=== PATIENT | male | born 1960 | race Caucasian/White ===

== ENCOUNTER 2023-06-13 00:12 | Emergency (ER) | payer MEDICARE, SELFPAY ==
[2023-06-13 00:14] VITALS: BP 138/82; PULSE 95; RESP 16; TEMP 36.8; O2SAT 99; BMI 25.0
--- NOTE | 2023-06-13 00:14 | ED_ITS ---
HPI - Abdominal Pain 2 General: Chief Complaint: Abdominal Pain Stated Complaint: hernia pain Time Seen by Provider: 06/13/23 00:12 Source: patient and EMS Mode of arrival: EMS Limitations: no limitations History of Present Illness: 62-year-old male that is here from [facility] he states that his fianc?e is post come to get him but he is currently homeless he states that he was walking outside tonight was cold knees got a chronic right lower hernia in the inguinal canal and states it was hurting. He states that it is now reduced his pain is much improved he denies any pain currently has had no vomiting or diarrhea Associated Symptoms: Denies chills, diarrhea, fever(s), nausea and vomiting Review of Systems 2 Const: Denies: fever(s), chills, body aches or change in appetite ENMT: Denies: throat pain or dental pain Card: Denies: chest pain Resp: Denies: dyspnea GI: Reports: abdominal pain; Denies: nausea, vomiting or diarrhea Musc: Denies: neck pain or back pain Skin/Breast: Denies: rash Neuro: Denies: headache(s) Physical Exam 2 Const: COMMON NORMALS: no acute distress, patient oriented x3 and healthy appearing HENMT: COMMON NORMALS: normocephalic and atraumatic HEAD & SCALP: n ormocephalic and atraumatic Neck/C-Spine: COMMON NORMALS: full ROM and supple Chest: COMMONS NORMALS: normal inspection of the chest Resp: COMMON NORMALS: normal respiratory effort Cardio: COMMON NORMALS: regular rate, regular rhythm and No murmurs present (Cardio) RATE: regular rate RHYTHM: regular rhythm GI: COMMON NORMALS: Normal to inspection, nondistended, normoactive bowel sounds present, Soft to palpation, non-tender and no masses PALPATION: Yes Soft to palpation OTHER: No palpable hernia noted no tenderness on abdominal exam Extremity: COMMON NORMALS: normal to inspection and full ROM Neuro: COMMON NORMALS: patient oriented x3, moves all extremities and no focal motor deficits Psych: COMMON NORMALS: mental status grossly normal, Normal thought process present and cooperative THOUGHT PROCESS: Normal thought process present Skin: COMMON NORMALS: no rashes or lesions noted and no wounds GENERAL SKIN EXAM: no rashes or lesions noted Course 2 Vital Signs: Vital signs: Vital Signs Temperature 98.3 F 06/13/23 00:14 Pulse Rate 95 06/13/23 00:14 Respiratory Rate 16 06/13/23 00:51 Blood Pressure 125/78 06/13/23 00:51 Pulse Oximetry 97 06/13/23 00:51 Oxygen Delivery Me thod Room Air 06/13/23 00:51 MDM - Abdominal Pain Medical Decision Making Patient presents here with abdominal pain chronic in nature 7 inguinal hernia in the past exam here is benign no hernia palpated he states that it had resolved he had no pain here blood works normal he is stable for discharge follow-up with PCP return if worsening. Medical Records I reviewed the patient's medical records. Lab Data I reviewed the patient's lab results. 06/13/23 00:33 06/13/23 00:33 Labs/Radiology: Laboratory Results WBC 11.87 10^3/uL (3.29-11.43) H 06/13/23 00:33 RBC 3.59 10^6/uL (3.85-5.65) L 06/13/23 00:33 Hgb 11.30 g/dL (11.27-16.99) 06/13/23 00:33 Hct 34.4 % (37-53) L 06/13/23 00:33 MCV 95.8 fl (82-101) 06/13/23 00:33 MCH 31.5 pg (27-33) 06/13/23 00:33 MCHC 32.8 g/dL (30-55) 06/13/23 00:33 RDW 13.9 % (12.1-15.1) 06/13/23 00:33 Plt Count 245 10^3/cmm (157-399) 06/13/23 00:33 MPV 9.0 fL (7.4-10.4) 06/13/23 00:33 Neut % (Auto) 78.3 % 06/13/23 00:33 Lymph % (Auto) 12.0 % 06/13/23 00:33 Bracken % (Auto) 7.5 % 06/13/23 00:33 Eos % (Auto) 1.2 % 06/13/23 00:33 Baso % (Auto) 0.2 % 06/13/23 00:33 Neut # (Auto) 9.31 10^3/uL (1.8-7.7) H 06/13/23 00:33 Lymph # (Auto) 1.4 10^3/uL (0.8-4.8) 06/13/23 00:33 Bracken # (Auto) 0.9 10^3/uL (0.2-0.9) 06/13/23 00:33 Eos # (Auto) 0.1 10^3/uL (0.0-0.8) 06/13/23 00:33 Baso # (Auto) 0.0 10^3/uL (0.0-0.1) 06/13/23 00:33 Nucleated RBC % (auto) 0 % 06/13/23 00:33 Nucleated RBCs # 0.0 /100WBC 06/13/23 00:33 Sodium 139 mmol/L (136-145) 06/13/23 00:33 Potassium 4.4 mmol/L (3.5-5.1) 06/13/23 00:33 Chloride 104 mmol/L (98-107) 06/13/23 00:33 Carbon Dioxide 25 mmol/L (22-29) 06/13/23 00:33 Anion Gap 14.4 (5-19) 06/13/23 00:33 BUN 12 mg/dL (8-23) 06/13/23 00:33 Creatinine 0.9 mg/dL (0.7-1.2) 06/13/23 00:33 Glucose 108 mg/dL (65-115) 06/13/23 00:33 Calculated Osmolality 288 mOsm/kg (285-295) 06/13/23 00:33 Total Bilirubin 0.3 mg/dL (0.15-1.2) 06/13/23 00:33 AST 31 U/L (0-40) 06/13/23 00:33 ALT 35 U/L (0-41) 06/13/23 00:33 Alkaline Phosphatase 81 U/L (40-130) 06/13/23 00:33 Total Protein 6.7 g/dL (6.6-8.7) 06/13/23 00:33 Albumin 3.6 g/dL (3.5-5.2) 06/13/23 00:33 Globulin 3.1 g/dL (1.3-4.6) 06/13/23 00:33 No radiology studies performed this visit Discharge Plan Discharge Patient Disposition: Home Clinical Impression: Abdominal pain Condition: Stable Discharge Orders: Discharge ED (Routine); Ordered 06/13/23 Ordered By: Mela Lima Discharge Diet: Advance as tolerated Discharge Activity: Resume usual activity Patient Instructions: Abdominal Pain (ED) Coding Level of Care Code ED Sound Engineer for Mirtha Santo
[2023-06-13 00:42] LABS: Basophils % 0.2 %; Eosinophils # 0.1 10^3/uL (0.0-0.8); Eosinophils % 1.2 %; Hematocrit 34.4 % (37-53); Lymphocytes # 1.4 10^3/uL (0.8-4.8); Mean Corpuscular HGB Conc 32.8 g/dL (30-55); Mean Corpuscular Hemoglobin 31.5 pg (27-33); Mean Corpuscular Volume 95.8 fl (82-101); Monocytes # 0.9 10^3/uL (0.2-0.9); Monocytes % 7.5 %; Neutrophils # 9.31 10^3/uL (1.8-7.7); Neutrophils % 78.3 %; Nucleated Red Blood Cells % 0 %; Platelet Count 245 10^3/cmm (157-399); Red Blood Count 3.59 10^6/uL (3.85-5.65); Red Cell Distribution Width 13.9 % (12.1-15.1); White Blood Count 11.87 10^3/uL (3.29-11.43)
[2023-06-13 00:51] VITALS: BP 125/78; RESP 16; O2SAT 97
[2023-06-13 01:10] LABS: Alanine Aminotransferase 35 U/L (0-41); Albumin Level 3.6 g/dL (3.5-5.2); Alkaline Phosphatase 81 U/L (40-130); Anion Gap 14.4 (5-19); Aspartate Amino Transferase 31 U/L (0-40); Blood Urea Nitrogen 12 mg/dL (8-23); Calcium 8.4 mg/dL (8.5-10.5); Carbon Dioxide 25 mmol/L (22-29); Chloride 104 mmol/L (98-107); Creatinine Clr Calc Pharmacy 82.6824; Globulin 3.1 g/dL (1.3-4.6); Glomerular Filtration Rate 85.5 mL/min (90-130); Glucose 108 mg/dL (65-115); Osmolality Calculated 288 mOsm/kg (285-295); Potassium 4.4 mmol/L (3.5-5.1); Sodium 139 mmol/L (136-145); Total Bilirubin 0.3 mg/dL (0.15-1.2); Total Protein 6.7 g/dL (6.6-8.7)
[2023-06-13 01:16] VITALS: BP 117/81; PULSE 99; O2SAT 95
== END 2023-06-13 01:18 | disposition home or self-care (01) ==
PROVIDERS: Emergency Provider Emergency Medicine
DX: R10.9 Unspecified abdominal pain (principal); Z59.00 Homelessness unspecified
CPT/HCPCS: 36415; 80053; 85025; 99283